=== PATIENT | female | born 1955 | race Caucasian/White ===

== ENCOUNTER 2021-09-21 16:20 | Emergency (ER) | payer SELFPAY ==
[~2021-09-21] VITALS: Ht 148.6 cm; Wt 72.1 kg
[2021-09-21 16:23] VITALS: BP 159/88
--- NOTE | 2021-09-21 16:49 | NUR ---
PATIENT TAKEN TO XRAY.
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
[2021-09-21 17:22] LABS: BASOPHILS % (AUTO) 0.4 % (0.0-2.0); EOSINOPHILS % (AUTO) 0.6 % (0.0-4.0); HEMATOCRIT 37.7 % (36-48); HEMOGLOBIN 12.9 g/dL (12.0-16.0); LYMPHOCYTES % (AUTO) 26.6 % (20.5-51.1); MEAN CORPUSCULAR HEMOGLOBIN 31 pg (27-31); MEAN CORPUSCULAR HGB CONC 34 g/dL (33-37); MEAN CORPUSCULAR VOLUME 89.6 fL (80-94); MONOCYTES # (AUTO) 0.7 K/uL (0.8-1.0); MONOCYTES % (AUTO) 9.3 % (1.7-9.3); NEUTROPHILS # (AUTO) 4.7 K/uL (1.8-7.7); NEUTROPHILS % (AUTO) 63.1 % (42.2-75.2); PLATELET COUNT (AUTO) 211 K/uL (140-450); RED BLOOD CELL COUNT(AUTO) 4.21 MIL/uL (4.20-5.40); RED CELL DISTRIBUTION WIDTH 14.1 % (11.6-13.7); WHITE BLOOD COUNT (AUTO) 7.5 K/uL (4.8-10.8)
[2021-09-21 18:52] LABS: ALBUMIN 3.9 g/dL (3.4-5.0); ANION GAP 13.8 (8-16); CARBON DIOXIDE 28.6 mmol/L (21-32); CREATININE 0.7 mg/dL (0.6-1.3); POTASSIUM 3.4 mmol/L (3.5-5.1); TOTAL BILIRUBIN 0.3 mg/dL (0.0-1.0)
--- NOTE | 2021-09-21 19:19 | NUR ---
Pt report given to BURTON BECKMAN. Transfer of care at this time.
[2021-09-21 20:08] VITALS: BP 160/86
--- NOTE | 2021-09-21 20:08 | NUR ---
Patient discharged with v/s stable. Written and verbal after care instructions given and explained. Patient verbalized understanding. Ambulatory with steady gait. ID band removed. All questions addressed prior to discharge. Advised to follow up with PMD.
== END 2021-09-21 20:08 | disposition home or self-care (01) ==
LOC: MED 16:20
DX: R07.9 Chest pain, unspecified (principal); M54.2 Cervicalgia; I10 Essential (primary) hypertension; V98.8XXA Other specified transport accidents, initial encounter; Y93.89 Activity, other specified; Y92.89 Other specified places as the place of occurrence of the external cause; Y99.8 Other external cause status
CPT/HCPCS: 36415; 71046; 80053; 84484; 85025; 93005; 99285

== ENCOUNTER 2022-05-31 12:41 | Emergency (ER) | payer MEDICAID ==
[~2022-05-31] VITALS: Ht 147.3 cm; Wt 69.4 kg
[2022-05-31 12:45] VITALS: BP 129/81
--- NOTE | 2022-05-31 12:51 | NUR ---
PT AMBULATED TO ER BED 4
[2022-05-31] MEDS ORDERED: IBUPROFEN 600 MG TAB PO ONE (13:30)
--- NOTE | 2022-05-31 13:30 | NUR ---
66/F WALKED IN C/O RIGHT FOOT PAIN ONSET 6 DAYS. DENIES FALL OR TRAUMA. PT STATES APPLYING VICKS ON THE AFFECTED LEG WITH NO RELIEF. NO SWELLING OR DEFORMITY NOTED. pmh: htn nka
[2022-05-31 13:48] VITALS: BP 126/76
[2022-05-31] MEDS ORDERED: IBUP-2213 PO (14:12)
--- NOTE | 2022-05-31 14:13 | NUR ---
WENDY WRAP X 1 TO R FOOT PER ER MID LEVEL.
[2022-05-31] MEDS ORDERED: ACET-9882 PO (14:28)
--- NOTE | 2022-05-31 14:30 | NUR ---
Patient discharged with v/s stable. Written and verbal after care instructions given and explained. Patient verbalized understanding. Ambulatory with steady gait. All questions addressed prior to discharge. Advised to follow up with PMD.
== END 2022-05-31 14:30 | disposition home or self-care (01) ==
LOC: MED 12:41
DX: S93.402A Sprain of unspecified ligament of left ankle, initial encounter (principal); S96.912A Strain of unspecified muscle and tendon at ankle and foot level, left foot, initial encounter; I10 Essential (primary) hypertension; Z79.899 Other long term (current) drug therapy; W22.8XXA Striking against or struck by other objects, initial encounter; Y93.89 Activity, other specified; Y92.89 Other specified places as the place of occurrence of the external cause; Y99.8 Other external cause status
CPT/HCPCS: 73610; 73630; 99284; Q0092

== ENCOUNTER 2022-12-26 09:14 | Inpatient (IN) | payer MEDICAID ==
[~2022-12-26] VITALS: Ht 157.5 cm; Wt 72.7 kg
[~2022-12-26 09:14] MED LIST: ACET-9882 PO; IBUP-2213 PO
[2022-12-26 09:23] VITALS: BP 129/71
--- NOTE | 2022-12-26 10:07 | NUR ---
Ultrasound at bedside.
[2022-12-26 10:27] LABS: BASOPHILS # (AUTO) 0.1 K/uL (0.00-0.22); BASOPHILS % (AUTO) 0.6 % (0.0-2.0); EOSINOPHILS # (AUTO) 0.1 K/uL (0-0.4); EOSINOPHILS % (AUTO) 0.9 % (0.0-4.0); HEMOGLOBIN 13.4 g/dL (12.0-16.0); LYMPHOCYTES # (AUTO) 1.8 K/uL (2.5-16.5); LYMPHOCYTES % (AUTO) 12.7 % (20.5-51.1); MEAN CORPUSCULAR HEMOGLOBIN 31 pg (27-31); MEAN CORPUSCULAR HGB CONC 34 g/dL (33-37); MEAN CORPUSCULAR VOLUME 91.3 fL (80-94); MONOCYTES # (AUTO) 1.1 K/uL (0.8-1.0); NEUTROPHILS # (AUTO) 10.9 K/uL (1.8-7.7); NEUTROPHILS % (AUTO) 77.8 % (42.2-75.2); PLATELET COUNT (AUTO) 268 K/uL (140-450); RED BLOOD CELL COUNT(AUTO) 4.38 MIL/uL (4.20-5.40); RED CELL DISTRIBUTION WIDTH 14.3 % (11.6-13.7)
[2022-12-26 10:42] LABS: ALBUMIN 2.5 g/dL (3.4-5.0); CREATININE 0.8 mg/dL (0.6-1.3); TOTAL BILIRUBIN 0.6 mg/dL (0.0-1.0)
--- NOTE | 2022-12-26 10:45 | NUR ---
PRESCHOOL ASSOCIATE TEACHER SP ID#[id number] CALLED TO ANSWER QUESTION FOR COMPLETE ASSESSEMENT. ALL QUESTIONS ADDRESSED. PATIENT RESTING IN BED.
[2022-12-26] MEDS ORDERED: MORPHINE SULFATE 4 MG/ML SYR IVP ONE (10:55)
[2022-12-26] MEDS ORDERED: ONDANSETRON 4 MG/2 ML VIAL IVP ONE (10:55)
[2022-12-26 12:01] LABS: APPEARANCE,URINE CLEAR (CLEAR); BILIRUBIN,URINE NEGATIVE (NEGATIVE); BLOOD, URINE 2+ (NEGATIVE); COLOR,URINE YELLOW (YELLOW); LEUKOCYTE ESTERASE ,URINE NEGATIVE (NEGATIVE); NITRITE, URINE NEGATIVE (NEGATIVE); UGLUCOSE NEGATIVE (NEGATIVE)
[2022-12-26] MEDS ORDERED: PIPERACILLIN/TAZOBACTAM 3.375 GM in DEXTROSE 5% 50 ML IV ONE (12:20)
[2022-12-26] MEDS ORDERED: guaiFENesin DM 200/20 MG-10 ML 10 ML UDC PO PRN (12:25)
[2022-12-26] MEDS ORDERED: ZOLPIDEM 5 MG TAB PO PRN (12:25)
[2022-12-26] MEDS ORDERED: ACETAMINOPHEN 325 MG TAB PO PRN (12:25)
[2022-12-26] MEDS: DEXT 5% /NACL 0.9% 1,000 ML IV SCH ×3 (12:25→23:50)
[2022-12-26] MEDS ORDERED: NACL 0.9% 500 ML IV ONE (12:25)
[2022-12-26] MEDS ORDERED: DOCUSATE SODIUM 100 MG GELCAP PO PRN (12:25)
[2022-12-26] MEDS ORDERED: PIPERACILLIN/TAZOBACTAM 3.375 GM VIAL IV ONE (12:29)
--- NOTE | 2022-12-26 12:40 | NUR ---
X-Ray at bedside.
[2022-12-26 13:35] LABS: PROTHROMBIN TIME 10.9 secs (10.8-13.4)
[2022-12-26 13:56] LABS: FREE T4 (FREE THYROXINE) 1.17 ng/dL (0.76-1.46); MAGNESIUM 1.7 mg/dL (1.8-2.4); PHOSPHORUS 3.7 mg/dL (2.5-4.9); THYROID STIMULATING HORMONE 1.43 uIU/mL (0.34-3.74)
[2022-12-26] MEDS ORDERED: HYDR-4004 PO (14:57)
--- NOTE | 2022-12-26 14:59 | NUR ---
Patient will be admitted to care of Dr OSBORN. Admited to medical surgical unit. Will go to room 124B. Belongings list completed. Report to BURTON ROSS.
[2022-12-26 16:00] VITALS: BP 119/62
--- NOTE | 2022-12-26 16:00 | NUR ---
RECEIVED PATIENT FROM ED. PATIENT WAS IN WHEELCHAIR AMBULATORY. PATIENT VITALS NORMAL. PLAN OF CARE STARTED. MONITORING CONTINUED.
[2022-12-26] MEDS: MORPHINE SULFATE 4 MG/ML SYR IVP PRN (16:35)
--- NOTE | 2022-12-26 17:50 | NUR ---
NUTRITION CALLED. PATIENT PLACED ON NPO EXCEPT MEDS.
--- NOTE | 2022-12-26 18:50 | NUR ---
PATIENT FAMILY ASKED WHAT IS THE REASON PATIENT IS ADMITTED. EXPLAINED THE NURSES SCOPE AND ROLE IN PATIENT CARE.
--- NOTE | 2022-12-26 19:18 | NUR ---
RECEIVED REPORT FROM DAY SHIFT NURSE FOR CONTINUITY OF CARE. PT IS AWAKE AT THIS TIME, SON AT BEDSIDE. ALERT AND ORIENTED X4, TURKS AND [place] ISLANDER SPEAKING BUT DOES UNDERSTAND SOME OCCITAN. CURRENTLY ON ROOM AIR WITH NO APPARENT SIGNS OF DISTRESS NOTED. OVERALL SKIN INTACT. IV SITE LOCATED AT RIGHT FOREARM 22 GAUGE, INTACT AND PATENT. SAFETY MEASURES IN PLACE, CALL LIGHT WITHIN REACH.
[2022-12-26 19:38] LABS: BARBITURATE, URINE NEGATIVE ng/ml (NEG <=200); BENZODIAZEPINE, URINE NEGATIVE ng/mL (NEG <=200); CANNABINOID, URINE NEGATIVE ng/mL (NEG <=50); COCAINE, URINE NEGATIVE ng/mL (NEG <=300); OPIATE, URINE NEGATIVE ng/mL (NEG <=2000); PHENCYCLIDINE SCREEN,URINE NEGATIVE ng/mL (NEG <=25)
[2022-12-26 20:00] VITALS: BP 114/70
[2022-12-26] MEDS ORDERED: MAGNESIUM OXIDE 400 MG TAB PO ONE (20:45)
--- NOTE | 2022-12-26 20:45 | NUR ---
PT MG LEVEL OF 1.7. DR OSBORN WAS CONTACTED AND AN ORDER FOR MAG OX 400 MG PO DAILY WAS PLACED. EXTRA DOSE WAS GIVEN AT TIME ORDER WAS PLACED. PT TOLERATED WELL, WILL CONTINUE TO MONITOR.
--- NOTE | 2022-12-26 23:50 | NUR ---
PT SLEEPING AT THIS TIME. EVEN CHEST RISE AND FALL NOTED, RESPIRATIONS EVEN AND UNLABORED. IV FLUID CHANGED. WILL CONTINUE TO MONITOR THE PT.
[2022-12-27] MEDS: HYDROcodone/APAP 7.5/325 MG 1 TAB PO PRN ×2 (01:31→15:48)
--- NOTE | 2022-12-27 01:35 | NUR ---
PT STATING A PAIN LEVEL OF 5/10 IN ABDOMEN. ADMINISTERED NORCO PRN FOR MODERATE PAIN, PT TOLERATED WELL. WILL CONTINUE TO MONITOR.
[2022-12-27 04:00] VITALS: BP 114/65
[2022-12-27 04:55] LABS: BASOPHILS % (AUTO) 0.2 % (0.0-2.0); EOSINOPHILS # (AUTO) 0.2 K/uL (0-0.4); EOSINOPHILS % (AUTO) 1.3 % (0.0-4.0); HEMATOCRIT 39.3 % (36-48); HEMOGLOBIN 13.2 g/dL (12.0-16.0); LYMPHOCYTES # (AUTO) 1.6 K/uL (2.5-16.5); LYMPHOCYTES % (AUTO) 11.7 % (20.5-51.1); MEAN CORPUSCULAR HEMOGLOBIN 31 pg (27-31); MEAN CORPUSCULAR HGB CONC 34 g/dL (33-37); MEAN CORPUSCULAR VOLUME 91.1 fL (80-94); MONOCYTES # (AUTO) 1.2 K/uL (0.8-1.0); MONOCYTES % (AUTO) 8.9 % (1.7-9.3); NEUTROPHILS # (AUTO) 10.4 K/uL (1.8-7.7); NEUTROPHILS % (AUTO) 77.9 % (42.2-75.2); PLATELET COUNT (AUTO) 287 K/uL (140-450); RED BLOOD CELL COUNT(AUTO) 4.31 MIL/uL (4.20-5.40); RED CELL DISTRIBUTION WIDTH 14.2 % (11.6-13.7); WHITE BLOOD COUNT (AUTO) 13.4 K/uL (4.8-10.8)
[2022-12-27 05:33] LABS: CARBON DIOXIDE 27.6 mmol/L (21-32); CREATININE 0.7 mg/dL (0.6-1.3)
[2022-12-27] MEDS: DEXT 5% /NACL 0.9% 1,000 ML IV SCH ×3 (05:49→23:19)
[2022-12-27 06:10] LABS: ANION GAP 12.1 (8-16); POTASSIUM 3.7 mmol/L (3.5-5.1)
--- NOTE | 2022-12-27 06:22 | NUR ---
PT UNDERSTANDS AND HAS SIGNED CONSENT FOR CT SCAN WITH CONTRAST. AWAITING PHYSICIAN CONSENT. PT IS STABLE AT THIS TIME, WILL ENDORSE TO DAY SHIFT NURSE FOR CONTINUITY OF CARE.
--- NOTE | 2022-12-27 07:08 | NUR ---
ASSUMED CONTINUITY OF CARE. INITIAL ASSESSMENT DONE. KEEP COMFORTABLE ON BED. CALL LIGHT WITHIN REACH.
[2022-12-27 08:00] VITALS: BP 118/69
--- NOTE | 2022-12-27 08:00 | NUR ---
Patient's Plan of Care was discussed and reviewed with SHUTTLE SPOTTER: CHUY Chaudhry
--- NOTE | 2022-12-27 08:54 | NUR ---
PATIENT HAS BEEN SCREENED AND CATEGORIZED HIGH NUTRITION RISK. PATIENT WILL BE SEEN WITHIN 1-2 DAYS OF ADMISSION. 12/26/22-12/28/22 PT DIAGNOSED HIGH RISK D/T 2 POINTS TRIGGERED REVIEWED BY ARLETH BOND RD
[2022-12-27] MEDS: MAGNESIUM OXIDE 400 MG TAB PO SCH (09:22)
[2022-12-27] MEDS: hydroCHLOROthiazide 25 MG TAB PO SCH (09:22)
[2022-12-27] MEDS: PANTOPRAZOLE 40 MG TABEC PO SCH (09:23)
--- NOTE | 2022-12-27 10:46 | NUR ---
DC [age] YRS OLD FEMALE PATIENT WAS ADMITTED FROM HOME WITH A DX OF ABD PAIN, GALLBLADDER MASS, ASCITES. PATIENT HAS A HX OF HTN. CXR NO ACUTE CARDIOPULMONARY DISEASE. CT ABD/PELVIS AND US GALLBLADDER SHOWED GALLBLADDER MASS SUGGESTED FOR MALIGNANCY . ADMINISTERED IVF,IV ABX ZOSYN , ZOFRAN AND MORPHINE IVP FOR PAIN. URINE AND BLOOD CULTURE PENDING. CONSULTED WITH GI . DC PLAN TO GO HOME WHEN STABLE AND F/U WITH ONCOLOGIST. CM TO FOLLOW
--- NOTE | 2022-12-27 12:14 | NUR ---
PT. BACK FROM CT DEPARTMENT VIA WHEELCHAIR. NO C/O N/V. NO C/O PAIN.
--- NOTE | 2022-12-27 12:27 | NUR ---
DC PLANNING ASSESSMENT COMPLETE PLEASE REFER TO ASSESSMENT FOR ADDITIONAL DETAILS PT REPORTS DC PLAN IS TO RETURN HOME WITH HER SON PROVIDING TRANSPORTATION, WHEN MEDICALLY CLEARED BY PHYSICIAN. Addendum: 12/27/22 at 1229 by Grisel GILLIAM Amended: Links added.
--- NOTE | 2022-12-27 13:15 | NUR ---
12/27/22 RD INITIAL ASSESSMENT COMPLETED PLEASE REFER TO NUTRITION ASSESSMENT UNDER CARE ACTIVITY FOR ESTIMATED NUTRITIONAL NEEDS. 1. MONITOR NPO STATUS 2. WHEN/IF MEDICALLY APPROPRIATE RECOMMEND NA2G DIET D/T PT HX OF HTN 2. MONITOR GI, PO INTAKE, NUTRITION RELATED LAB VALUES. 3. RD TO FOLLOW-UP 3-5 DAYS, MODERATE RISK REVIEWED BY ARLETH BOND RD
[2022-12-27 16:00] VITALS: BP 133/67
--- NOTE | 2022-12-27 17:55 | NUR ---
INSERTED NEW IV ACCESS ON LEFT FOREARM GAUGE #22. REMOVED IV ON RIGHT AC GAUGE#20 DUE TO INFILTRATION. TOLERATED WELL.
--- NOTE | 2022-12-27 19:11 | NUR ---
BEDSIDE REPORT GIVEN TO DARLINE MONTE. IVF INFUSING WELL. IN STABLE CONDITION.
--- NOTE | 2022-12-27 19:12 | NUR ---
RECEIVED PT FROM MORNING SHIFT NURSE. PT IS AOX4, KINYARWANDA SPEAKING, AMBULATORY, ABLE TO VERBALIZE NEEDS AND ABLE TO FOLLOW COMMANDS. PT IS ON ROOM AIR AND ON NPO EXCEPT MEDS. PT HAS IV ON LEFT FOREARM GAUGE 22 RUNNING WITH D5NS AT 115ML/HR. PT SKIN IS INTACT. NO COMPLAIN OF PAIN. NO S/S OF RESPIRATORY DISTRESS NOTED. ALL SAFETY MEASURES IMPLEMENTED. BED IN LOW POSITION, BED WHEELS ON LOCK AND CALL LIGHT WITHIN REACH.
--- NOTE | 2022-12-27 22:00 | NUR ---
PT WAS GIVEN ICE CHIP DUE TO DRYNESS OF MOUTH. REMINDED THE PT THAT SHE'S NPO. PT VERBALIZE UNDERSTANDING. ALL SAFETY MEASURES IMPLEMENTED. BED IN LOW POSITION, BED WHEELS ON LOCK AND CALL LIGHT WITHIN REACH.
[2022-12-28] MEDS: MORPHINE SULFATE 4 MG/ML SYR IVP PRN ×3 (00:52→20:43)
--- NOTE | 2022-12-28 00:52 | NUR ---
PRN PAIN MEDICATION WAS GIVEN TO PT DUE TO ABDOMINAL PAIN WITH PAIN SCALE OF 8/10. ALL SAFETY MEASURES IMPLEMENTED. BED IN LOW POSITION, BED WHEELS ON LOCK AND CALL LIGHT WITHIN REACH.
--- NOTE | 2022-12-28 02:00 | NUR ---
PT IS ON SLEEP. CHEST RISE AND FALL SYMMETRICALLY NOTED. RESPIRATION IS EVEN AND UNLABORED. ALL SAFETY MEASURES IMPLEMENTED. BED IN LOW POSITION, BED WHEELS ON LOCK AND CALL LIGHT WITHIN REACH.
[2022-12-28 04:00] VITALS: BP 143/85
--- NOTE | 2022-12-28 04:00 | NUR ---
CHECKED THE PT STILL ON SLEEP. CHEST RISE AND FALL SYMMETRICALLY NOTED. RESPIRATION IS EVEN AND UNLABORED. ALL SAFETY MEASURES IMPLEMENTED. BED IN LOW POSITION, BED WHEELS ON LOCK AND CALL LIGHT WITHIN REACH.
[2022-12-28 05:03] LABS: BASOPHILS # (AUTO) 0.1 K/uL (0.00-0.22); BASOPHILS % (AUTO) 0.4 % (0.0-2.0); EOSINOPHILS # (AUTO) 0.1 K/uL (0-0.4); EOSINOPHILS % (AUTO) 0.5 % (0.0-4.0); HEMATOCRIT 39.9 % (36-48); HEMOGLOBIN 13.5 g/dL (12.0-16.0); LYMPHOCYTES # (AUTO) 1.3 K/uL (2.5-16.5); LYMPHOCYTES % (AUTO) 8.6 % (20.5-51.1); MEAN CORPUSCULAR HEMOGLOBIN 31 pg (27-31); MEAN CORPUSCULAR HGB CONC 34 g/dL (33-37); MEAN CORPUSCULAR VOLUME 91.2 fL (80-94); MONOCYTES # (AUTO) 1.3 K/uL (0.8-1.0); MONOCYTES % (AUTO) 8.9 % (1.7-9.3); NEUTROPHILS # (AUTO) 11.9 K/uL (1.8-7.7); NEUTROPHILS % (AUTO) 81.6 % (42.2-75.2); PLATELET COUNT (AUTO) 296 K/uL (140-450); RED BLOOD CELL COUNT(AUTO) 4.38 MIL/uL (4.20-5.40); RED CELL DISTRIBUTION WIDTH 14.4 % (11.6-13.7); WHITE BLOOD COUNT (AUTO) 14.6 K/uL (4.8-10.8)
[2022-12-28 05:23] LABS: ANION GAP 9.1 (8-16); CARBON DIOXIDE 27.1 mmol/L (21-32); CREATININE 0.7 mg/dL (0.6-1.3); POTASSIUM 3.2 mmol/L (3.5-5.1)
[2022-12-28] MEDS: POTASSIUM CHLORIDE 10 MEQ TABER PO PRN (06:07)
--- NOTE | 2022-12-28 06:07 | NUR ---
K-DUR 40MEQ WAS GIVEN TO PT DUE TO K LEVEL OF 3.2 ALL SAFETY MEASURES IMPLEMENTED. BED IN LOW POSITION, BED WHEELS ON LOCK AND CALL LIGHT WITHIN REACH.
[2022-12-28] MEDS: ONDANSETRON 4 MG/2 ML VIAL IM/IVP PRN (06:59)
--- NOTE | 2022-12-28 07:34 | NUR ---
PT IS STABLE. ENDORSED PT TO MORNING SHIFT NURSE FOR CONTINUITY OF CARE.
--- NOTE | 2022-12-28 07:35 | NUR ---
RECEIVED REPORT FROM RESTAURANT INSPECTOR NURSE FOR CONTINUITY OF CARE. PT IS AWAKE AND STABLE. CALL LIGHT WITHIN REACH. WILL CONTINUE TO MONITOR.
[2022-12-28] MEDS: PANTOPRAZOLE 40 MG TABEC PO SCH (08:29)
[2022-12-28] MEDS: hydroCHLOROthiazide 25 MG TAB PO SCH (08:29)
[2022-12-28] MEDS ORDERED: POTASSIUM CHLORIDE 10 MEQ TABER PO ONE (08:30)
[2022-12-28] MEDS: MAGNESIUM OXIDE 400 MG TAB PO SCH (08:30)
[2022-12-28] MEDS: ENOXAPARIN 40 MG/0.4 ML SYR SUBQ SCH (08:31)
[2022-12-28] MEDS: DEXT 5% /NACL 0.9% 1,000 ML IV SCH ×2 (09:00→18:09)
--- NOTE | 2022-12-28 19:10 | NUR ---
ENDORSED PT TO ENVIRONMENTAL PROTECTION GEOLOGIST NURSE FOR CONTINUITY OF CARE.MNURUM
--- NOTE | 2022-12-28 19:11 | NUR ---
RECEIVED PT FROM MORNING SHIFT NURSE. PT IS AOX4, MALTESE SPEAKING, SON IS ON BEDSIDE, AMBULATORY, ABLE TO VERBALIZE NEEDS AND ABLE TO FOLLOW COMMANDS. PT IS ON ROOM AIR AND ON REGULAR DIET. PT HAS IV ON LEFT FOREARM GAUGE 22 RUNNING WITH D5NS AT 115ML/HR. PT SKIN IS INTACT. NO COMPLAIN OF PAIN. NO S/S OF RESPIRATORY DISTRESS NOTED. ALL SAFETY MEASURES IMPLEMENTED. BED IN LOW POSITION, BED WHEELS ON LOCK AND CALL LIGHT WITHIN REACH.
[2022-12-28 20:00] VITALS: BP 137/84
--- NOTE | 2022-12-28 20:00 | NUR ---
NOTIFIED DR. AGUAYO DUE TO PT IS POSITIVE ON MDRO-URINE. DR. AGUAYO ORDER FOR CONSULT TO DR. LUJAN. ORDER WAS MADE AND CARRIED OUT.
--- NOTE | 2022-12-28 20:05 | NUR ---
NOTIFIED DR. LUJAN THAT HE HAS A NEW CONSULT ORDER FROM DR. AGUAYO. DR. LUJAN TOLD THAT ADD PT ON HIS LIST. ORDER WAS MADE AND CARRIED OUT.
--- NOTE | 2022-12-28 20:43 | NUR ---
PT WAS GIVEN PRN PAIN MEDICATION DUE TO ABDOMINAL PAIN WITH THE PAIN SCALE OF 8/10. ALL SAFETY MEASURES IMPLEMENTED. BED IN LOW POSITION, BED WHEELS ON LOCK AND CALL LIGHT WITHIN REACH.
[2022-12-28] MEDS ORDERED: metroNIDAZOLE 500 MG/NS PREMIX 100 ML IV SCH (21:55)
[2022-12-29] MEDS: DEXT 5% /NACL 0.9% 1,000 ML IV SCH ×3 (01:19→19:55)
--- NOTE | 2022-12-29 02:00 | NUR ---
PT WAS GIVEN WARM BLANKET. NO COMPLAIN OF PAIN. NO S/S OF RESPIRATORY DISTRESS NOTED. ALL SAFETY MEASURES IMPLEMENTED. BED IN LOW POSITION, BED WHEELS ON LOCK AND CALL LIGHT WITHIN REACH.
[2022-12-29 04:00] VITALS: BP 129/81
[2022-12-29] MEDS: metroNIDAZOLE 500 MG/NS PREMIX 100 ML IV SCH ×3 (04:22→21:54)
--- NOTE | 2022-12-29 04:22 | NUR ---
SCHEDULED AND PRESCRIBED MEDICATION WAS GIVEN TO PT PER MD ORDER. ALL SAFETY MEASURES IMPLEMENTED. BED IN LOW POSITION, BED WHEELS ON LOCK AND CALL LIGHT WITHIN REACH.
[2022-12-29 05:19] LABS: BASOPHILS # (AUTO) 0.1 K/uL (0.00-0.22); BASOPHILS % (AUTO) 0.4 % (0.0-2.0); EOSINOPHILS # (AUTO) 0.1 K/uL (0-0.4); EOSINOPHILS % (AUTO) 0.4 % (0.0-4.0); HEMATOCRIT 40.5 % (36-48); HEMOGLOBIN 13.6 g/dL (12.0-16.0); LYMPHOCYTES # (AUTO) 1.1 K/uL (2.5-16.5); LYMPHOCYTES % (AUTO) 7.6 % (20.5-51.1); MEAN CORPUSCULAR HEMOGLOBIN 31 pg (27-31); MEAN CORPUSCULAR HGB CONC 34 g/dL (33-37); MEAN CORPUSCULAR VOLUME 91.6 fL (80-94); MONOCYTES # (AUTO) 1.3 K/uL (0.8-1.0); MONOCYTES % (AUTO) 8.7 % (1.7-9.3); NEUTROPHILS # (AUTO) 12.4 K/uL (1.8-7.7); NEUTROPHILS % (AUTO) 82.9 % (42.2-75.2); PLATELET COUNT (AUTO) 295 K/uL (140-450); RED BLOOD CELL COUNT(AUTO) 4.42 MIL/uL (4.20-5.40); WHITE BLOOD COUNT (AUTO) 14.9 K/uL (4.8-10.8)
[2022-12-29 06:09] LABS: ANION GAP 13.6 (8-16); CARBON DIOXIDE 23.8 mmol/L (21-32); CREATININE 0.8 mg/dL (0.6-1.3); POTASSIUM 3.4 mmol/L (3.5-5.1)
--- NOTE | 2022-12-29 07:13 | NUR ---
PT IS STABLE. ENDORSED PT TO MORNING SHIFT NURSE FOR CONTINUITY OF CARE.
--- NOTE | 2022-12-29 08:00 | NUR ---
NURSE REPORT REPORT OBTAINED FROM MARIUSZ NURSE DARLINE AT 0713 AND THIS NURSE ASSUMED CARE OF PATIENT. VSS. AFEB. NO C/O PAIN OR DISCOMFORT. MARTIN HERRERA RN
[2022-12-29] MEDS: MAGNESIUM OXIDE 400 MG TAB PO SCH (09:18)
[2022-12-29] MEDS: hydroCHLOROthiazide 25 MG TAB PO SCH (09:19)
[2022-12-29] MEDS: ENOXAPARIN 40 MG/0.4 ML SYR SUBQ SCH (09:19)
[2022-12-29] MEDS: PANTOPRAZOLE 40 MG TABEC PO SCH (09:19)
[2022-12-29] MEDS: MORPHINE SULFATE 4 MG/ML SYR IVP PRN ×2 (09:26→14:15)
--- NOTE | 2022-12-29 09:26 | NUR ---
NURSE NOTES MEDICATED FOR PAIN WITH MORPHINE 3 MG IVP
[2022-12-29] MEDS: ONDANSETRON 4 MG/2 ML VIAL IM/IVP PRN (11:10)
[2022-12-29] MEDS: POTASSIUM CHLORIDE 10 MEQ TABER PO PRN (11:12)
[2022-12-29 12:00] VITALS: BP 141/76
--- NOTE | 2022-12-29 12:00 | NUR ---
NURSE NOTES VSS. AFEB. NO C/O PAIN. IV D5NS INFUSING AT 115 ML/HR.
--- NOTE | 2022-12-29 14:00 | NUR ---
NURSE NOTES CONSENT FOR COMPUTED TOMOGRAPHY OF CHEST WITH CONTRAST WITH USE OF MOTOR INSPECTION MECHANIC ON IPAD #[id number] MARTIN HERRERA RN
[2022-12-29 16:00] VITALS: BP 127/90
--- NOTE | 2022-12-29 19:30 | NUR ---
NURSE REPORT REPORT GIVEN TO NIGHT NURSE SHARYN TO ASSUME CARE OF PATIENT. ALL QUESTIONS ANSWERED. NOT SURE WHEN PATIENT WILL HAVE SURGERY. MARTIN HERRERA RN
--- NOTE | 2022-12-29 19:30 | NUR ---
RECEIVED REPORT FROM AM NURSE. PATIENT AWAKE IN BED ON ROOM AIR. NO SOB NOTED. NO COMPLAINED OF PAIN AT THIS TIME. D5NS INFUSING ORDERED. SON AT BEDSIDE. BED WHEELS LOCKED IN LOW POSITION. CALL LIGHT WITHIN REACH. OBSERVED CONTACT ISOLATION FOR MDRO URINE.
--- NOTE | 2022-12-29 21:13 | NUR ---
ALL SCHEDULED MEDICATIONS ADMINISTERED PER MD ORDER.
[2022-12-30] MEDS: DEXT 5% /NACL 0.9% 1,000 ML IV SCH (03:03)
[2022-12-30 04:00] VITALS: BP 130/72
[2022-12-30] MEDS: metroNIDAZOLE 500 MG/NS PREMIX 100 ML IV SCH ×2 (04:59→12:58)
--- NOTE | 2022-12-30 07:28 | NUR ---
ALL NEEDS MET THROUGHOUT THE SHIFT. ENDORSED TO AM NURSE FOR CONTINUITY OF CARE.
[2022-12-30 08:00] VITALS: BP 133/89
[2022-12-30] MEDS: ONDANSETRON 4 MG/2 ML VIAL IM/IVP PRN (08:05)
[2022-12-30 08:34] LABS: CARBON DIOXIDE 24.6 mmol/L (21-32); CREATININE 0.8 mg/dL (0.6-1.3); POTASSIUM 3.5 mmol/L (3.5-5.1)
[2022-12-30 08:57] LABS: BASOPHILS % (AUTO) 0.1 % (0.0-2.0); EOSINOPHILS % (AUTO) 0.2 % (0.0-4.0); HEMATOCRIT 40.4 % (36-48); HEMOGLOBIN 13.6 g/dL (12.0-16.0); LYMPHOCYTES % (AUTO) 6.7 % (20.5-51.1); MEAN CORPUSCULAR HEMOGLOBIN 31 pg (27-31); MEAN CORPUSCULAR HGB CONC 34 g/dL (33-37); MEAN CORPUSCULAR VOLUME 91.6 fL (80-94); MONOCYTES # (AUTO) 1.1 K/uL (0.8-1.0); MONOCYTES % (AUTO) 7.5 % (1.7-9.3); NEUTROPHILS # (AUTO) 12.9 K/uL (1.8-7.7); NEUTROPHILS % (AUTO) 85.5 % (42.2-75.2); PLATELET COUNT (AUTO) 327 K/uL (140-450); RED BLOOD CELL COUNT(AUTO) 4.41 MIL/uL (4.20-5.40); RED CELL DISTRIBUTION WIDTH 14.5 % (11.6-13.7); WHITE BLOOD COUNT (AUTO) 15.1 K/uL (4.8-10.8)
[2022-12-30] MEDS: hydroCHLOROthiazide 25 MG TAB PO SCH (09:02)
[2022-12-30] MEDS: PANTOPRAZOLE 40 MG TABEC PO SCH (09:02)
[2022-12-30] MEDS: MAGNESIUM OXIDE 400 MG TAB PO SCH (09:02)
[2022-12-30 09:37] LABS: ANION GAP 11.9 (8-16)
[2022-12-30] MEDS: ENOXAPARIN 40 MG/0.4 ML SYR SUBQ SCH (12:59)
--- NOTE | 2022-12-30 18:00 | NUR ---
PT AND HER SON SULEMA REQUESTS TO LEAVE,EXPLAINED PT AND SULEMA PT IS NOT MEDICAL CLEARED TO D/C AND AWAITING PENDING TRANSFER TO HIGHER LEVEL OF CARE FOR GB SPECIALIST,PT AND SON INFORMED OF RISKS FOR BEING LEAVING AMA AND VERBALIZED UNDERSTANDINGS.AMA SIGNED,PT LEAVING VIA W/C ACCOMPANIED BY HER SON SULEMA
== END 2022-12-30 18:23 | disposition left against medical advice (07) | DRG 720 ==
LOC: MED 09:14 → MTU 12:12
PROVIDERS: ADMIT Family Medicine; ATTEND Family Medicine
DX: A41.9 Sepsis, unspecified organism (principal); E43 Unspecified severe protein-calorie malnutrition; C23 Malignant neoplasm of gallbladder; J90 Pleural effusion, not elsewhere classified; R18.8 Other ascites; C78.6 Secondary malignant neoplasm of retroperitoneum and peritoneum; N30.01 Acute cystitis with hematuria; B96.20 Unspecified Escherichia coli [E. coli] as the cause of diseases classified elsewhere; E87.6 Hypokalemia; I10 Essential (primary) hypertension; Z20.822 Contact with and (suspected) exposure to COVID-19; K80.20 Calculus of gallbladder without cholecystitis without obstruction; Z79.1 Long term (current) use of non-steroidal anti-inflammatories (NSAID); Z79.899 Other long term (current) drug therapy; E83.42 Hypomagnesemia; Z68.29 Body mass index [BMI] 29.0-29.9, adult
CPT/HCPCS: 36415; 71045; 71270; 76705; 80048; 80053; 80305; 81001; 82150; 83036; 83690; 83735; 83880; 84100; 84436; 84439; 84443; 84479; 85025; 85610; 85730; 87040; 87081; 87086; 96374; 96375; 99285; J0696; J1650; J2270; J2405; J2543; J3490; J7060; Q0092; Q9967